=== PATIENT | male | born 1935 | race Caucasian/White ===

== ENCOUNTER 2017-09-24 21:50 | Inpatient (IN) | payer MEDICARE, OTHER, SELFPAY ==
[2017-09-24 21:50] VITALS: BP 138/64; PULSE 88; RESP 16; TEMP 36.6; O2SAT 93; BMI 26.6
--- NOTE | 2017-09-24 22:10 | EKG12_ITS ---
Test Reason : Blood Pressure : / mmHG Vent. Rate : 097 BPM Atrial Rate : 097 BPM P-R Int : 176 ms QRS Dur : 090 ms QT Int : 350 ms P-R-T Axes : 065 -07 047 degrees QTc Int : 444 ms Sinus rhythm with occasional Premature ventricular complexes and Premature atrial complexes Otherwise normal ECG Confirmed by DANK NARAYANAN, BERNADETTE ([id number]), production editor DIAZ AVENDAÑO ([id number]) on 09/26/2017 2:31:10 PM Referred By: JAKE Confirmed By:BERNADETTE WEEMS MD
--- NOTE | 2017-09-24 22:11 | RAD_ITS ---
STUDY: X-RAY CHEST REASON FOR EXAM: Male, 81 years old. Shortness of breath TECHNIQUE: Frontal and lateral views of the chest COMPARISON: None. FINDINGS: The lungs are clear. There are no pleural effusions. There is no pneumothorax. The heart is normal in size. The visualized osseous structures are within normal limits. RAD/Chest PA and Lateral IMPRESSION: No acute thoracic pathology. Electronically Signed: Young Waldron, at 23:06 EDT Tel , Service support ,
--- NOTE | 2017-09-24 22:18 | ED.DCSUM_ITS ---
- ER Visit Summary Date of Service: 09/24/17 Chief Complaint: Cough and shortness of breath History of Present Illness: The patient is a 81 M who was seen by his PCP on September 09 for cough and congestion along with shortness of breath. He was treated with a course of Levaquin. Patient was seen by his PCP again yesterday and was told his x-ray showed a spot of pneumonia. He was given Ceftin, Zithromax, albuterol, and prednisone. Patient presents today with no improvement in his symptoms. Patient is a past smoker. He denies any significant past medical history. Physical Examination: Vital signs are grossly unremarkable. Respiratory rate is 16 and pulse ox is 93% on room air. He is afebrile. Patient sitting upright in bed no acute distress. Head neck examination is unremarkable. Heart is regular rate and rhythm. Lung sounds are diminished at the bases bilaterally. Abdomen is soft nontender. Lower extremity examination reveals no calf tenderness or edema. Test Results: CBC was a white count of 18.9. Chemistry studies are unremarkable. EKG is sinus at 97 with single PVC. No acute ST change. Chest x -ray shows left basilar infiltrate per my read. Of note, the radiologist reading reveals no acute pathology. I disagree with this reading. Blood cultures were obtained. Emergency Department Course and Treatment: Patient was given a DuoNeb treatment. On repeat evaluation he has scant expiratory wheeze at this time. He still has moist sounding cough. He will be given Rocephin and Zithromax. He will be given 2 additional albuterol treatments and given a dose of Mucinex. Because the patient has failed outpatient therapy he will be admitted for further treatment. Treatment Plan: [] Disposition: Admit Impression: Community acquired pneumonia with failed outpatient management Addendum: When the patient was restarted albuterol treatments his heart rate noted to go up to 140 and irregular. Repeat EKG at this time reveals atrial fibrillation with a rate of 102. There is no ST change. Patient has no chest pain. Hospitalist has been updated and patient be given a dose of Lovenox here. Impression: 1. Community acquired pneumonia with failed outpatient management 2. Paroxysmal atrial fibrillation This note was generated with TestQuestation software. It may contain incorrect words, spelling, and punctuation that were not noted in review of the chart prior to signing ED Disposition - Plan for ED Patient: Chief Complaint: Shortness of Breath Referrals: Zeke Espinosa MD [Primary Care Provider] -
--- NOTE | 2017-09-24 22:18 | ED.RN ---
NO OLD EKG'S IN MUSE
[2017-09-24] MEDS: Ipratropium/Albuterol Sulfate 3 ML AMPUL.NEB INHALATION (22:22)
[2017-09-24 22:40] VITALS: BP 139/72; PULSE 87; RESP 22; O2SAT 93
[2017-09-24 22:48] LABS: Absolute Lymphocyte Count 7.38 X10^3/ul (0.83-4.51); Absolute Neutrophil Count 10.5 X10^3/uL (2.0-7.7); Basophil# 0.01 X10^3/uL; Basophil% 0.1 % (0-1); Eosinophil# 0.04 X10^3/uL; Eosinophils% 0.2 % (0-5); Hemoglobin 14.8 g/dl (13.0-16.5); Lymphocyte # 7.38 X10^3/ul (4.0); Mean Corp Hgb Conc 32.9 g/gl (32-36); Mean Corpuscular Hgb 32.4 pg (27.0-32.0); Mean Corpuscular Volume 98.5 fL (80-94); Mean Platelet Vol. 9.3 fl (6.2-12.0); Monocyte% 4.8 % (0-10); Neutrophil # 10.53 X10^3/uL (2.7-7.7); Neutrophil % 55.5 % (47-70); Platelet Count 182 K/mm3 (150-450); RBC Distribution Width SD 46.9 fl (35.1-43.9); Red Blood Count 4.57 M/mm3 (4.6-6.2); White Blood Count 18.9 K/mm3 (4.4-11.0)
[2017-09-24 22:49] LABS: Differential Indicated SCAN CRITERIA MET; POSITIVE COUNT NO; POSITIVE DIFFERENTIAL YES; POSITIVE MORPHOLOGY NO
[2017-09-24 22:58] LABS: Anion Gap 7 (5-15); BUN 25 mg/dL (7-18); BUN/Creat Ratio 23.8 RATIO (10-20); Calcium,Total 9.8 mg/dL (8.5-10.1); Chloride 100 mmol/L (98-107); Creatinine, Serum 1.05 mg/dL (0.70-1.30); EST Glomerular Filtration Rate 72 mL/min (>60); Est Glom Filt Rate - Afr Amer 88 mL/min (>60); Glucose 103 mg/dL (74-106); Potassium 4.1 mmol/L (3.5-5.1); Sodium Level 138 mmol/L (136-145)
[2017-09-24 23:15] LABS: Differential Comment SCANNED
[2017-09-24 23:16] LABS: Platelet Estimate ADEQUATE (ADEQ)
[2017-09-24 23:27] VITALS: BP 130/74; PULSE 123; PULSE 89; RESP 18; RESP 20; O2SAT 93
[2017-09-24] MEDS: Albuterol 2.5 MG/3 ML VIAL.NEB. INHALATION ×2 (23:27)
[2017-09-24] MEDS: 0.9% Normal Saline 1,000 ML 15 ML IV (23:27)
--- NOTE | 2017-09-24 23:27 | HP.PCM_ITS ---
Problem List (1) New onset a-fib Status: Acute (2) Sepsis Status: Acute (3) CAP (community acquired pneumonia) Status: Acute History of Present Illness Date of Admission: 09/24/17 Chief Complaint: Sepsis secondary to CAP. The patient is a 81 year old male is admitted for sepsis secondary to CAP. He has been cough x 2 weeks. He was initially treated with his PCP with levaquin. However, the frequency and intensity of his productive cough have increased. Nothing appeared to make his coughing better or worse. His cough is associated with SOB. The coughing has been so severe that it interfered with his ADLs. His had a chest xray yesterday which disclosed pneumonia. He was treated with Ceftin , Zithromax, albuterol, and prednisone. He presented to the ED because of no improvement. No sick contact. No travel, Past Medical History Allergies Sulfa (Sulfonamide Antibiotics) Allergy (Verified 09/24/17 21:55) Unknown Home Medications: Ambulatory Orders Medication Instructions Recorded Albuterol Aerosols [Ventolin 2.5 mg INHALATION Q4HWA.RT 09/24/17 Aerosols] Albuterol Inhaler [Ventolin Hfa 1 - 2 puff INHALATION Q4H PRN PRN 09/24/17 (SP)] Azithromycin [Zithromax Z-Omari] 250 mg PO UD 09/24/17 Cefuroxime Axetil [Ceftin] 250 mg PO BID 09/24/17 Prednisone 20 mg PO DAILY 09/24/17 Surgical History: no surgical history Psychiatric History: No pertinent psych hx Lives: Spouse/ Significant Other Smoking Status: Former smoker Alcohol: None Drugs: None Review of Systems Constitutional: Denies: Chills, Fever, Weight Change HEENT: Denies: Head Aches, Sinus Congestion, Sinus Drainage Cardiovascular: Denies: Chest Pain, Palpitations Respiratory: Reports: Cough, Shortness of breath at rest, Sputum production, Wheezing Gastrointestinal: Denies: Abdominal Pain, Nausea, Vomiting Genitourinary: Denies: Dysuria Musculoskeletal: Denies: Joint Pain, Joint Tenderness Skin: Denies: Rash, Wounds Neurological: Denies: Numbness, Tingling, Focal weakness Psychiatric: Denies: Anxiety, Depression, Homicidal Ideations, Suicidal Ideations Hematologic/ Lymphatic: Denies: Easy Bruising, Easy Bleeding VTE Information - Inpt Only VTE Present on Admission: No VTE Mechan Device Prophylaxis: SCD's VTE Pharm Prophylaxis ordered?: Yes Patient Problems: Active and Suspected Problems New onset a-fib (Acute) Sepsis (Acute) CAP (community acquired pneumonia) (Acute) - Physical Exam General: Alert, Oriented x3, Cooperative HEENT: Atraumatic, PERRLA, EOMI, Normocephalic Neck: Supple, No JVD, Negative Carotid Bruits Lungs: Diminished, Rales, Tachypneic, Wheezes Cardiovascular: Regular rate, No murmurs Abdomen: Bowel Sounds Present, Soft, Non Tender Extremities: No edema, Capillary Refill Less than 3 Seconds Skin: No rashes, No breakdown Musculoskeletal: No Tenderness to Palpation of Joints or Extremities Neurological: Cranial nerves II-XII grossly intact Psych/Mental Status: Normal Affect, Appropriate Vital Signs Temp Pulse Resp BP Pulse Ox 97.9 F 87 22 H 139/72 H 93 09/24/17 21:50 09/24/17 22:40 09/24/17 22:40 09/24/17 22:40 09/24/17 22:40 Oxygen Delivery Method Room Air Weight: 537.961 kg Body Mass Index (BMI) 170.1 Laboratory Tests Past 24 Hrs 09/24/17 09/24/17 09/24/17 22:30 22:30 22:30 WBC 18.9 H RBC 4.57 L Hgb 14.8 Hct 45.0 MCV 98.5 H MCH 32.4 H MCHC 32.9 RDW 13.0 RDW Differential 46.9 H Plt Count 182 MPV 9.3 Immature Gran % (Auto) 0.400 Neut % (Auto) 55.5 Lymph % (Auto) 39.0 [place] % (Auto) 4.8 Eos % (Auto) 0.2 Baso % (Auto) 0.1 Absolute Neuts (auto) 10.5 H Absolute Lymphs (auto) 7.38 H Total Counted Not Reportable Differential Comment SCANNED Diff Path Review May foll Platelet Estimate ADEQUATE Sodium 138 Potassium 4.1 Chloride 100 Carbon Dioxide 31.0 Anion Gap 7 BUN 25 H Creatinine 1.05 Estim Creat Clear Calc 58.90 Est GFR (MDRD) Af Amer 88 Est GFR (MDRD) Non-Af 72 BUN/Creatinine Ratio 23.8 H Glucose 103 Calcium 9.8 B-Natriuretic Peptide 24.0 Assessment/Plan Active and Suspected Problems New onset a-fib (Acute) Sepsis (Acute) CAP (community acquired pneumonia) (Acute) 81 year old male is admitted for sepsis secondary to CAP. 1) Sepsis secondary to CAP: Failed outpt therapy. Will start ceftriaxone and azithromycin. Will consider widening coverage if no improvement. Cultures pending. Lactate 2. Will repeat level. Hydration but with caution given comorbidity. 2) Afib with RVR: Most likely secondary to sepsis. Will get serial trops. Anticoagulation with lovenox. ECHO in AM. Consulted cards. 3) CAP: Hydration. C/w ceftriaxone and azithromycin. Increase coverage if no improvement. 4) Prophylaxis: Lovenox.
[2017-09-24] MEDS: Azithromycin 250 MG Tablet 500 MG PO (23:28)
[2017-09-24] MEDS: guaiFENesin 1,200 MG Tablet 1200 MG PO (23:28)
[2017-09-24] MEDS: Ceftriaxone 1 GM/50 ML BAG IV (23:28)
--- NOTE | 2017-09-24 23:40 | ED.RN ---
2330: PT NOTED TO BE IN AFIB ON BEDSIDE MONITOR, RATE 120'S. MD LANGSTON NOTIFIED AND REPEAT ECG ORDERED. PT AND FAMILY DENY HX OF AFIB. PT DENIES NOTICING RACING/IRREG HR CURRENTLY OR IN PAST.
--- NOTE | 2017-09-24 23:48 | CPS ---
Tx stopped due to increase in heart rate. Patient went into A-FIB.
[2017-09-25] VITALS (22 sets, daily range): BP systolic 103–143; BP diastolic 51–76; PULSE 69–119; RESP 16–20; TEMP 36.3–37.1; O2SAT 92–94; BMI 26.9
[2017-09-25] MEDS: Enoxaparin 80 MG/0.8 ML Syringe SC ×2 (00:06→09:33)
[2017-09-25] MEDS: 0.9% Normal Saline 1,000 ML 75 ML IV ×2 (01:16→12:25)
[2017-09-25 02:08] LABS: Bacteria 0 SEEN /hpf (None Seen); Mucous, Urine 0 SEEN /hpf (<or=2+); Red Blood Cells-Urine 0 SEEN /hpf (0-5); White Blood Cells 0 SEEN /hpf (0-5)
[2017-09-25 02:10] LABS: Color, Urine Straw (Yellow); Glucose, Dipstick Normal (Normal); Ketone-Dipstick Negative (Negative); Leukocyte Esterase-Dipstick Negative /ul (Negative); Nitrite-Dipstick Negative (Negative); Occult Blood-Urine Negative /ul (Negative); Protein-Dipstick Negative (Negative); Urine Bilirubin Dipstick Negative (Negative); Urine Clarity Clear (Clear); Urine Urobilinogen Normal (Normal); Urine pH 6.5 (5.0 - 8.0)
[2017-09-25 02:20] LABS: Squamous Epithelial Cells - UA 0-5 SEEN /hpf (0-5)
--- NOTE | 2017-09-25 04:25 | RAD_ITS ---
STUDY: X-RAY CHEST REASON FOR EXAM: Male, 81 years old. Shortness of breath TECHNIQUE: PA and lateral views of the chest. COMPARISON: 09/24/2017 FINDINGS: Coarsened prominence of interstitial lung markings at bilateral lung bases, left greater than right, unchanged. No new confluent airspace opacity. No pleural effusion or pneumothorax. Normal size heart. Normal mediastinum and wally. Normal visualized pulmonary arteries. There is atherosclerotic calcification of the aortic arch . There are diffuse degenerative changes of the visualized thoracic spine. Normal visualized ribs, clavicles, and shoulders. There is no demonstrated abnormality of the visualized soft tissue structures of the upper abdomen. RAD/Chest PA and Lateral IMPRESSION: Chronic bibasilar interstitial change with no evidence of acute cardiopulmonary disease. Electronically Signed: Nilson Ellis MD at 4:49 EDT Tel , Service support ,
[2017-09-25 04:27] LABS: Hematocrit 42.9 % (40-54); Hemoglobin 14.5 g/dl (13.0-16.5); Mean Corp Hgb Conc 33.8 g/gl (32-36); Mean Corpuscular Hgb 33.3 pg (27.0-32.0); Mean Corpuscular Volume 98.4 fL (80-94); Mean Platelet Vol. 9.5 fl (6.2-12.0); Platelet Count 173 K/mm3 (150-450); RBC Distribution Width CV 12.7 % (11.6-14.6); RBC Distribution Width SD 45.1 fl (35.1-43.9); Red Blood Count 4.36 M/mm3 (4.6-6.2); Scan Indicated on CBC? Y/N NO; White Blood Count 17.4 K/mm3 (4.4-11.0)
[2017-09-25 05:08] LABS: AST(SGOT) 36 U/L (15-37); Alanine Aminotransfer ALT/SGPT 51 U/L (16-61); Albumin, Serum 2.8 g/dL (3.2-5.0); Alkaline Phosphatase 57 U/L (45-117); Anion Gap 9 (5-15); BUN 22 mg/dL (7-18); BUN/Creat Ratio 24.9 RATIO (10-20); Bilirubin, Direct 0.15 mg/dL (0.00-0.30); Calcium,Total 9.1 mg/dL (8.5-10.1); Chloride 106 mmol/L (98-107); Cholesterol 152 mg/dL (200); Creatinine, Serum 0.88 mg/dL (0.70-1.30); EST Glomerular Filtration Rate 88 mL/min (>60); Est Glom Filt Rate - Afr Amer 107 mL/min (>60); Estimated Creatinine Clearance 68.07 ml/min; Globulin 3.6 g/dL (2.2-4.2); Glucose 103 mg/dL (74-106); High Density Lipoprotein 41 mg/dL; Potassium 3.9 mmol/L (3.5-5.1); Protein, Total 6.4 g/dL (6.4-8.2); Sodium Level 142 mmol/L (136-145); Thyroid Stim Hormone (TSH) 0.24 uIU/mL (0.358-3.74); Triglycerides 90 mg/dL; Very Low Density Lipoprotein 18 mg/dL (5-40)
--- NOTE | 2017-09-25 05:55 | ECHOD_ITS ---
Reason For Study: AFIB-FLUTTER Procedure This was a 2D Doppler, Color Flow transthoracic echocardiogram. The study was technically difficult. Exam performed portable in patient room. Left Ventricle Normal LV size. Left ventricular systolic function is normal. The estimated ejection fraction is 65 %. Transmitral diastolic flow velocities suggest mild (stage 1) diastolic dysfunction (reversed pattern). No regional wall motion abnormalities noted. Right Ventricle Normal RV size. Normal systolic function. Atria Normal left atrium. Normal right atrium. Mitral Valve Normal mitral valve. Tricuspid Valve Normal tricuspid valve. Mild (1+) tricuspid valve insufficiency. Pulmonary artery systolic pressure is 42 mmHg. Aortic Valve Normal aortic valve. Pulmonic Valve Normal pulmonic valve. Great Vessels Normal aortic root. The pulmonary artery is normal size. Pericardium/Pleural No pericardial effusion. MMode/2D Measurements & Calculations LVIDd: 4.2 cm IVSd: 1.0 cm Ao root diam: 3.5 cm LVIDs: 2.4 cm LVPWd: 1.1 cm LA dimension: 3.7 cm RVDd: 3.7 cm FS: 43.3 % LAV(MOD-bp): 59.3 ml LA A4 area: 18.7 cm2 RA A4 area: 18.8 cm2 LAV(MOD-bp) Indexed: 29.4 ml/m2 LAV(MOD-sp2): 63.1 ml LAV(MOD-sp4): 49.7 ml Time Measurements MV dec time: 0.25 sec Doppler Measurements & Calculations MV E max efra: 68.7 cm/sec Lat Peak E' Efra: 10.2 cm/sec Med Peak E' Efra: 12.4 cm/sec MV A max efra: 108.7 cm/sec E/E' lat: 6.7 E/E' med: 5.6 MV E/A: 0.63 MV V2 max: 114.5 cm/sec MV P1/2t max efra: 105.9 cm/sec Ao V2 max: 174.4 cm/sec MV max P.2 mmHg MV P1/2t: 83.0 msec Ao max P.2 mmHg MV V2 mean: 72.2 cm/sec MV dec slope: 373.7 cm/sec2 Ao V2 mean: 95.0 cm/sec MV mean P.4 mmHg MVA(P1/2t): 2.6 cm2 Ao mean P.5 mmHg MV V2 VTI: 30.6 cm Ao V2 VTI: 27.1 cm LV V1 max: 136.0 cm/sec PA V2 max: 132.7 cm/sec TR max efra: 311.1 cm/sec LV V1 max P.4 mmHg TR max P.7 mmHg LV V1 mean P.7 mmHg LV V1 mean: 89.2 cm/sec LV V1 VTI: 26.0 cm Interpretation Summary Normal LV size. Left ventricular systolic function is normal. The estimated ejection fraction is 65 %. Transmitral diastolic flow velocities suggest mild (stage 1) diastolic dysfunction (reversed pattern). Mild (1+) tricuspid valve insufficiency. Pulmonary artery systolic pressure is 42 mmHg. Ordering Physician: Des Concepcion Referring Physician: EDMAR LAUREANO Performed By: Ricardo Alejandro RCS
[2017-09-25] MEDS: Albuterol 2.5 MG/3 ML VIAL.NEB. INHALATION ×4 (06:02→18:52)
[2017-09-25 06:40] LABS: Reflex Lactate? Y
--- NOTE | 2017-09-25 06:44 | PCM.PROGNOTE ---
Patient Problems: Active and Suspected Problems New onset a-fib (Acute) Sepsis (Acute) CAP (community acquired pneumonia) (Acute) Subjective: Mr. Garcia is a 81-year-old male with a past medical history of tobacco dependence in remission who presented to the ED at [facility] on 09/24/2017 complaining of cough and shortness of breath. He recently had been treated by his PCP with Levaquin and then Ceftin and Azithromycin with no improvement. He had also been taking Prednisone and Albuterol. Vital signs in the emergency department were temp 97.9, pulse rate 88, blood pressure 138/64, respiratory rate 16 - 23 and he was 93% saturated on room air. White blood cell count was elevated at 18.9 with 55% neutrophils and 39% lymphocytes. Hemoglobin and platelets were normal. Electrolytes were normal and the BUN was 25 with a creatinine of 1.05. CXR was read as no infiltrates per the radiologist however per my review I can not rule out a retrocardiac infiltrate. Legionella and streptococcal antigens in the urine were negative. Influenza swab was negative. A sputum sample was obtained and Gram stain and culture are pending. Respiratory panel was ordered. He was admitted to the hospital with a diagnosis of sepsis due to community-acquired pneumonia and started on Ceftriaxone and azithromycin. Following admission he went into atrial fibrillation with rapid ventricular response with heart rates up to 123 bpm. He was started on Lovenox and a TSH was ordered which was low at 0.24. T4 and T3 have been ordered. ECHO was also ordered. He tells me that he has been sick for 3 weeks. cough is productive of Green frazier sputum. Denies CP. Cough is worse when he is lying down. He also has rhinorrhea and post nasal drainage. Denies sneezing and itchy watery eyes. Tells me that his PCP diagnosed him with COPD in the past. He quit smoking about 25 years ago. On no oxygen ever at home. Had no inhalers or tx for COPD prior to recent acute illness. Denies fevers, chills, sweats or weight loss. No diarrhea, Nausea or vomiting. Objective: General: Alert, oriented ?3, no very forthcoming with hx, appropriate, seems annoyed that I am asking him questions Neck: Supple, trachea midline, no enlarged cervical nodes or submandibular glands, no enlarged supraclavicular nodes Lungs: Clear to auscultation, diminished, symmetric chest expansion, not tachypneic, no conversational dyspnea, no accessory muscle use, coughing with any attempt to take a deep breath Heart: Regular rate and rhythm, normal S1, normal S2, no murmur, no gallop, no rub........AF has converted to NSR.....denies any hx of CAD of AF...has never had a stress test. Abdomen: Soft, NT, ND, bowel sounds present Extremities: No clubbing, no peripheral edema, no cyanosis - Physical Exam Vital Signs Temp Pulse Resp BP Pulse Ox 97.8 F 95 18 112/76 92 09/25/17 05:11 09/25/17 06:03 09/25/17 06:03 09/25/17 05:11 09/25/17 05:11 Oxygen Delivery Method Room Air Weight: 182 lb 5.156 oz Body Mass Index (BMI) 26.9 Intake and Output for Last 24 Hours 09/23/17 09/24/17 09/25/17 23:59 23:59 23:59 Intake Total 983 / 983 Output Total 350 / 350 Balance 633 / 633 Microbiology Past 72 Hours 09/25/17 02:50 Influenza Types A,B Direct FA (ROMEO) - Final Mucosa - Nose 09/25/17 02:03 Streptococcus pneumoniae Antigen (M - Final Urine, Clean Catch 09/25/17 02:03 Legionella Antigen - Final Urine, Clean Catch Laboratory Tests Past 24 Hrs 09/25/17 09/25/17 09/25/17 01:35 02:03 02:36 WBC RBC Hgb Hct MCV MCH MCHC RDW RDW Differential Plt Count MPV Sodium Potassium Chloride Carbon Dioxide Anion Gap BUN Creatinine Estim Creat Clear Calc Est GFR (MDRD) Af Amer Est GFR (MDRD) Non-Af BUN/Creatinine Ratio Glucose Lactic Acid 2.0 Calcium Total Bilirubin Direct Bilirubin AST ALT Alkaline Phosphatase Troponin I < 0.015 Total Protein Albumin Globulin Triglycerides Cholesterol LDL Cholesterol VLDL Cholesterol HDL Cholesterol TSH Urine Color Straw Urine Clarity Clear Urine pH 6.5 Ur Specific [place] 1.010 Urine Protein Negative Urine Glucose (UA) Normal Urine Ketones Negative Urine Occult Blood Negative Urine Nitrite Negative Urine Bilirubin Negative Urine Urobilinogen Normal Ur Leukocyte Esterase Negative Urine RBC 0 SEEN Urine WBC 0 SEEN Ur Squamous Epith Cells 0-5 SEEN Urine Bacteria 0 SEEN Urine Mucus 0 SEEN 09/25/17 09/25/17 09/25/17 04:12 04:12 04:12 WBC 17.4 H RBC 4.36 L Hgb 14.5 Hct 42.9 MCV 98.4 H MCH 33.3 H MCHC 33.8 RDW 12.7 RDW Differential 45.1 H Plt Count 173 MPV 9.5 Sodium 142 Potassium 3.9 Chloride 106 Carbon Dioxide 27.0 Anion Gap 9 BUN 22 H Creatinine 0.88 Estim Creat Clear Calc 68.07 Est GFR (MDRD) Af Amer 107 Est GFR (MDRD) Non-Af 88 BUN/Creatinine Ratio 24.9 H Glucose 103 Lactic Acid Calcium 9.1 Total Bilirubin 0.60 Direct Bilirubin 0.15 AST 36 ALT 51 Alkaline Phosphatase 57 Troponin I < 0.015 Total Protein 6.4 Albumin 2.8 L Globulin 3.6 Triglycerides 90 Cholesterol 152 LDL Cholesterol 93 VLDL Cholesterol 18 HDL Cholesterol 41 TSH 0.24 L Urine Color Urine Clarity Urine pH Ur Specific [place] Urine Protein Urine Glucose (UA) Urine Ketones Urine Occult Blood Urine Nitrite Urine Bilirubin Urine Urobilinogen Ur Leukocyte Esterase Urine RBC Urine WBC Ur Squamous Epith Cells Urine Bacteria Urine Mucus Medical Necessity - Tobacco Use Smoking Status: Former smoker Tobacco Use: Non-smoker Assessment/Plan Active and Suspected Problems New onset a-fib (Acute) Sepsis (Acute) CAP (community acquired pneumonia) (Acute) Impressions 1. suspect a retrocardiac infiltrate....possibly viral - will get a CT of the chest. 2. Leukocytosis may be due to recent OP steroids 3. suspected COPD - has never seen a fender finisher 4. Hyperthyroidism 5. PAF - likely related to hyperthyroidism and also to getting a duoneb and 2 albuterol aerosols in the ED last night just prior to going into AF 6. former smoker - quit many years ago Start a low dose beta perry Check anti-thyroid antibodies Add budesonide to the aerosols BID IS and Acapella Try Atrovent nasal spray to dry up the nose and the post nasal drip CT scan of the chest Await the results of the respiratory panel Sputum with 3+ WBC's - culture pending
[2017-09-25 07:31] LABS: Lactic Acid 1.6 mmol/L (0.4-2.0)
[2017-09-25 08:09] LABS: Free T3 2.4 pg/mL (2.18-3.98)
--- NOTE | 2017-09-25 09:32 | EKG12_ITS ---
Test Reason : Blood Pressure : / mmHG Vent. Rate : 102 BPM Atrial Rate : 416 BPM P-R Int : 000 ms QRS Dur : 088 ms QT Int : 334 ms P-R-T Axes : 000 003 025 degrees QTc Int : 435 ms Atrial fibrillation Nonspecific ST abnormality Abnormal ECG Confirmed by BERNADETTE WEEMS MD ([id number]), newspaper or periodical editor DIAZ AVENDAÑO ([id number]) on 09/26/2017 2:31:26 PM Referred By: KIAN Confirmed By:BERNADETTE WEEMS MD
[2017-09-25] MEDS: Ceftriaxone 1 GM/50 ML BAG IV (09:33)
[2017-09-25] MEDS: Aspirin 81 MG TAB.CHEW PO (09:33)
[2017-09-25] MEDS: Magnesium Hydroxide 30 ML UDC PO (09:44)
--- NOTE | 2017-09-25 12:03 | CT_ITS ---
STUDY: CT CHEST WITHOUT CONTRAST REASON FOR EXAM: Male, 81 years old. Shortness of breath RADIATION DOSAGE (If Supplied By Facility): CTDIvol = ( 19.23 ) mGy, DLP = ( 696.75 ) mGycm TECHNIQUE: Transaxial imaging was performed without the administration of intravenous contrast material. Coronal and sagittal reformatted images were created. Individualized dose optimization techniques were used for this CT. COMPARISON: None FINDINGS: There is atelectasis of the right lung base. There is airspace opacity in the left lower lobe which is consistent with an infiltrate. The lungs are otherwise clear. There are no pleural effusions. There is no pneumothorax. The heart and pericardium are within normal limits. There is no thoracic lymphadenopathy. There is no evidence of thoracic aortic aneurysm. Images through the upper abdomen demonstrate no significant abnormality. There are no destructive osseous lesions. CT/Chest without Contrast IMPRESSION: Left lower lobe infiltrate. Electronically Signed: Young Waldron, at 14:10 EDT Tel , Service support ,
[2017-09-25] MEDS: Metoprolol Tartrate 25 MG Tablet 12.5 MG PO ×2 (13:12→22:04)
[2017-09-25] MEDS: Ipratropium Bromide 0.06% NASAL SPRAY 2 SPRAY NASAL ×2 (13:45→22:09)
[2017-09-25] MEDS: Budesonide Respules 0.5 MG/2 ML AMPUL.NEB. INHALATION (18:52)
[2017-09-26] VITALS (16 sets, daily range): BP systolic 91–129; BP diastolic 44–66; PULSE 62–85; RESP 16–28; TEMP 36.1–36.9; O2SAT 89–95
[2017-09-26] MEDS: 0.9% Normal Saline 1,000 ML 75 ML IV ×2 (02:28→15:52)
[2017-09-26] MEDS: Ipratropium Bromide 0.06% NASAL SPRAY 2 SPRAY NASAL ×2 (05:32→22:21)
[2017-09-26 06:14] LABS: Hematocrit 41.5 % (40-54); Hemoglobin 13.7 g/dl (13.0-16.5); Mean Corpuscular Hgb 32.9 pg (27.0-32.0); Mean Corpuscular Volume 99.5 fL (80-94); Mean Platelet Vol. 9.8 fl (6.2-12.0); Platelet Count 184 K/mm3 (150-450); RBC Distribution Width CV 12.7 % (11.6-14.6); RBC Distribution Width SD 46.1 fl (35.1-43.9); Red Blood Count 4.17 M/mm3 (4.6-6.2); White Blood Count 12.8 K/mm3 (4.4-11.0)
[2017-09-26 06:32] LABS: Anion Gap 8 (5-15); BUN 17 mg/dL (7-18); BUN/Creat Ratio 19.8 RATIO (10-20); Chloride 108 mmol/L (98-107); Creatinine, Serum 0.86 mg/dL (0.70-1.30); EST Glomerular Filtration Rate 91 mL/min (>60); Est Glom Filt Rate - Afr Amer 111 mL/min (>60); Estimated Creatinine Clearance 69.65 ml/min; Glucose 88 mg/dL (74-106); Potassium 4.2 mmol/L (3.5-5.1); Sodium Level 144 mmol/L (136-145)
[2017-09-26 06:56] LABS: Scan Indicated on CBC? Y/N NO
[2017-09-26] MEDS: Ceftriaxone 1 GM/50 ML BAG IV (09:13)
[2017-09-26] MEDS: Aspirin 81 MG TAB.CHEW PO (09:13)
[2017-09-26] MEDS: Metoprolol Tartrate 25 MG Tablet 12.5 MG PO ×2 (09:14→22:20)
[2017-09-26] MEDS: Enoxaparin 40 MG/0.4 ML Syringe SC (09:14)
--- NOTE | 2017-09-26 10:38 | CASEMGMT ---
Face to Face with patient for initial transition planning/care coordination assessment. RN JEN introduced self and role at [facility], pt/granddaughter voice understanding and consent to assessment at this time. Pt is confused at times and granddaughter answers most questions for pt at this time. Pt is sitting up on side of bed in no distress at this time. Care providers, pharmacy, and demographics verified. See attached link. Pt/granddaughter voice no further concerns/needs at this time. Advised pt/granddaughter to ask for CM if any further questions/concerns/needs arise, voice understanding. CM to follow for any further discharge planning/needs. PLAN: JEREMIE Montgomery RN, CM
[2017-09-26 11:32] LABS: Pathologist Review Reviewed
[2017-09-26] MEDS: Haloperidol Lactate 5 MG/ML Vial 2 MG IV (11:51)
--- NOTE | 2017-09-26 17:53 | PCM.PROGNOTE ---
Patient Problems: Active and Suspected Problems New onset a-fib (Acute) Sepsis (Acute) CAP (community acquired pneumonia) (Acute) Subjective: Day #3 antibiotics azithromycin and Rocephin All Events of the past 24 hours have been reviewed. Afebrile since admission. Vital signs stable. 92-95% saturation on room air. White blood cell count today is down to 12.8. Hemoglobin and platelets are within normal limits. Electrolytes are unremarkable. BUN is down to 17 and the creatinine is 0.86 now, down from 1.05 at admission. Respiratory panel is positive for rhinovirus and the Gram stain shows 3+ white blood cells with no epithelial cells. Preliminary on the sputum culture is alpha hemolytic strep. CT chest was consistent with left basilar pneumonia. Echocardiogram shows normal left ventricular function with a 65% ejection fraction. Transmitral diastolic flow velocities are suggestive of stage I diastolic dysfunction. There is +1 TR and the pulmonary artery systolic pressure is estimated at 42. He became confused and agitated today and aggressive with the staff. Has been refusing Aerosols. Family states the past few weeks he has been intermittently confused and also has been hallucinating. Prior to a few weeks ago he had no problems with cognition. - Physical Exam General: Lethargic HEENT: Atraumatic, PERRLA, EOMI, Normocephalic Oral: Moist Mucosa Neck: Supple, No Nuchal Rigidity Lungs: Clear to auscultation, - - Coughing but the cough is not effective. He is unable to understand how to use the IS. Cardiovascular: Regular rate, Regular Rhythm, Normal S1, Normal S2, No rub noted, No Gallop Abdomen: Bowel Sounds Present, Soft, Non Tender, Non-Distended Extremities: No edema Psych/Mental Status: Agitated Vital Signs Temp Pulse Resp BP Pulse Ox 97.0 F L 62 18 91/44 L 95 09/26/17 14:06 09/26/17 16:55 09/26/17 14:06 09/26/17 14:06 09/26/17 14:06 Oxygen Delivery Method Room Air Weight: 186 lb 1.122 oz Body Mass Index (BMI) 26.9 Intake and Output for Last 24 Hours 09/24/17 09/25/17 09/26/17 23:59 23:59 23:59 Intake Total 2855 / 2855 1523 / 1523 Output Total 1210 / 1210 650 / 650 Balance 1645 / 1645 873 / 873 Microbiology Past 72 Hours 09/25/17 04:40 Gram Stain - Final Sputum, Expectorated/Coughed Respiratory Culture - Preliminary Alpha Hemolytic Streptococcus 09/25/17 07:45 Respiratory Panel (PCR) - Final Mucosa - Nose Rhinovirus 09/25/17 02:50 Influenza Types A,B Direct FA (ROMEO) - Final Mucosa - Nose 09/25/17 02:03 Streptococcus pneumoniae Antigen (M - Final Urine, Clean Catch 09/25/17 02:03 Legionella Antigen - Final Urine, Clean Catch Laboratory Tests Past 24 Hrs 09/26/17 09/26/17 05:25 05:25 WBC 12.8 H RBC 4.17 L Hgb 13.7 Hct 41.5 MCV 99.5 H MCH 32.9 H MCHC 33.0 RDW 12.7 RDW Differential 46.1 H Plt Count 184 MPV 9.8 Sodium 144 Potassium 4.2 Chloride 108 H Carbon Dioxide 28.0 Anion Gap 8 BUN 17 Creatinine 0.86 Estim Creat Clear Calc 69.65 Est GFR (MDRD) Af Amer 111 Est GFR (MDRD) Non-Af 91 BUN/Creatinine Ratio 19.8 Glucose 88 Calcium 9.0 Medical Necessity - Tobacco Use Smoking Status: Former smoker Tobacco Use: Non-smoker Assessment/Plan Active and Suspected Problems New onset a-fib (Acute) Sepsis (Acute) CAP (community acquired pneumonia) (Acute) Impressions 1. L basilar Pneumonia 2. Acute delirium...possibly due to hyperthyroidism 3. suspected COPD - has never seen a diffusion furnace operator 4. Hyperthyroidism 5. PAF - likely related to hyperthyroidism and also to getting a duoneb and 2 albuterol aerosols in the ED last night just prior to going into AF 6. former smoker - quit many years ago no recurrent AF check a CTB now Antithyroid antibodies are pending Thyroid ultrasound ordered for the a.m. Seroquel 25 mg p.o. nightly and Haldol 1-2 mg IV every 4 hours as needed agitation Continue Rocephin and azithromycin-await final sputum culture continue to encourage him to Take deep breaths. He has been able to use the Acapella with some good results. discussed the diagnosis of hyperthyroidism with the family Will need to follow up with an yard manager after discharge Code Visit Inpatient E&M: 66830 Subs Hosp L3
--- NOTE | 2017-09-26 18:04 | PN_ITS ---
Patient Problems: Active and Suspected Problems New onset a-fib (Acute) Sepsis (Acute) CAP (community acquired pneumonia) (Acute) Subjective: Day #3 antibiotics azithromycin and Rocephin All Events of the past 24 hours have been reviewed. Afebrile since admission. Vital signs stable. 92-95% saturation on room air. White blood cell count today is down to 12.8. Hemoglobin and platelets are within normal limits. Electrolytes are unremarkable. BUN is down to 17 and the creatinine is 0.86 now, down from 1.05 at admission. Respiratory panel is positive for rhinovirus and the Gram stain shows 3+ white blood cells with no epithelial cells. Preliminary on the sputum culture is alpha hemolytic strep. CT chest was consistent with left basilar pneumonia. Echocardiogram shows normal left ventricular function with a 65% ejection fraction. Transmitral diastolic flow velocities are suggestive of stage I diastolic dysfunction. There is +1 TR and the pulmonary artery systolic pressure is estimated at 42. He became confused and agitated today and aggressive with the staff. Has been refusing Aerosols. Family states the past few weeks he has been intermittently confused and also has been hallucinating. Prior to a few weeks ago he had no problems with cognition. - Physical Exam General: Lethargic HEENT: Atraumatic, PERRLA, EOMI, Normocephalic Oral: Moist Mucosa Neck: Supple, No Nuchal Rigidity Lungs: Clear to auscultation, - - Coughing but the cough is not effective. He is unable to understand how to use the IS. Cardiovascular: Regular rate, Regular Rhythm, Normal S1, Normal S2, No rub noted , No Gallop Abdomen: Bowel Sounds Present, Soft, Non Tender, Non-Distended Extremities: No edema Psych/Mental Status: Agitated Vital Signs Temp Pulse Resp BP Pulse Ox 97.0 F L 62 18 91/44 L 95 09/26/17 14:06 09/26/17 16:55 09/26/17 14:06 09/26/17 14:06 09/26/17 14:06 Oxygen Delivery Method Room Air Weight: 186 lb 1.122 oz Body Mass Index (BMI) 26.9 Intake and Output for Last 24 Hours 09/24/17 09/25/17 09/26/17 23:59 23:59 23:59 Intake Total 2855 / 2855 1523 / 1523 Output Total 1210 / 1210 650 / 650 Balance 1645 / 1645 873 / 873 Microbiology Past 72 Hours 09/25/17 04:40 Gram Stain - Final Sputum, Expectorated/Coughed Respiratory Culture - Preliminary Alpha Hemolytic Streptococcus 09/25/17 07:45 Respiratory Panel (PCR) - Final Mucosa - Nose Rhinovirus 09/25/17 02:50 Influenza Types A,B Direct FA (ROMEO) - Final Mucosa - Nose 09/25/17 02:03 Streptococcus pneumoniae Antigen (M - Final Urine, Clean Catch 09/25/17 02:03 Legionella Antigen - Final Urine, Clean Catch Laboratory Tests Past 24 Hrs 09/26/17 09/26/17 05:25 05:25 WBC 12.8 H RBC 4.17 L Hgb 13.7 Hct 41.5 MCV 99.5 H MCH 32.9 H MCHC 33.0 RDW 12.7 RDW Differential 46.1 H Plt Count 184 MPV 9.8 Sodium 144 Potassium 4.2 Chloride 108 H Carbon Dioxide 28.0 Anion Gap 8 BUN 17 Creatinine 0.86 Estim Creat Clear Calc 69.65 Est GFR (MDRD) Af Amer 111 Est GFR (MDRD) Non-Af 91 BUN/Creatinine Ratio 19.8 Glucose 88 Calcium 9.0 Medical Necessity - Tobacco Use Smoking Status: Former smoker Tobacco Use: Non-smoker Assessment/Plan Active and Suspected Problems New onset a-fib (Acute) Sepsis (Acute) CAP (community acquired pneumonia) (Acute) Impressions 1. L basilar Pneumonia 2. Acute delirium...possibly due to hyperthyroidism 3. suspected COPD - has never seen a clutch mechanic 4. Hyperthyroidism 5. PAF - likely related to hyperthyroidism and also to getting a duoneb and 2 albuterol aerosols in the ED last night just prior to going into AF 6. former smoker - quit many years ago no recurrent AF check a CTB now Antithyroid antibodies are pending Thyroid ultrasound ordered for the a.m. Seroquel 25 mg p.o. nightly and Haldol 1-2 mg IV every 4 hours as needed agitation Continue Rocephin and azithromycin-await final sputum culture continue to encourage him to Take deep breaths. He has been able to use the Acapella with some good results. discussed the diagnosis of hyperthyroidism with the family Will need to follow up with an boom boss after discharge Code Visit Inpatient E&M: 58996 Subs Hosp L3
--- NOTE | 2017-09-26 18:07 | CT_ITS ---
STUDY: CT BRAIN WITHOUT CONTRAST REASON FOR EXAM: Male, 81 years old. Altered mental status. RADIATION DOSAGE (If Supplied By Facility): CTDIvol = ( 44.99 ) mGy, DLP = ( 796.11 ) mGycm TECHNIQUE: Transaxial CT imaging of the brain was performed without administration of intravenous contrast material. Individualized dose optimization techniques were used for this CT. COMPARISON: None. FINDINGS: Normal soft tissue structures. Normal calvarium. Normal size ventricles and extra-axial spaces for the patient's age. Normal white matter tracts of the cerebral hemispheres. Normal basal ganglia and thalami. Normal brainstem. Normal cerebellum. There is no intracranial hemorrhage. There are no findings of an acute ischemic infarction. Normal visualized paranasal sinuses. CT/Brain/Head without Contrast IMPRESSION: Normal unenhanced CT scan of the brain. Electronically Signed: Nilson Rice DO at 18:45 EDT Tel [phone], Service support ,
[2017-09-26] MEDS: Haloperidol Lactate 5 MG/ML Vial IV ×2 (18:17→22:20)
[2017-09-26] MEDS: QUEtiapine 25 MG Tablet PO (22:20)
[2017-09-26] MEDS: Ipratropium/Albuterol Sulfate 3 ML AMPUL.NEB INHALATION (23:50)
[2017-09-26] MEDS: Budesonide Respules 0.5 MG/2 ML AMPUL.NEB. INHALATION (23:52)
[2017-09-27] VITALS (18 sets, daily range): BP systolic 103–145; BP diastolic 52–78; PULSE 57–90; RESP 16–24; TEMP 36.5–36.9; O2SAT 91–96
[2017-09-27] MEDS: Ipratropium/Albuterol Sulfate 3 ML AMPUL.NEB INHALATION ×4 (03:53→19:24)
[2017-09-27] MEDS: Benzonatate 100 MG Capsule PO (04:46)
--- NOTE | 2017-09-27 05:55 | US_ITS ---
STUDY: THYROID ULTRASOUND REASON FOR EXAM: Male, 81 years old. Hyperthyroidism. TECHNIQUE: Ultrasound evaluation of the thyroid was performed with real-time and static erickson-scale imaging. COMPARISON: None. FINDINGS: RIGHT LOBE: The right lobe of the thyroid gland measures 5.4 x 2.0 x 1.9 cm. There is a homogeneous echotexture. There are at least 2 nodular densities. The largest is located in the mid thyroid and measures 1.2 x 1 x 1 cm in size and is complex in appearance. LEFT LOBE: The left lobe of the thyroid gland measures 4.5 x 2.1 x 2.4 cm. There is a homogeneous echotexture. There are multiple small nodular densities. The largest measures 1.4 x 1.5 x 1.2 cm and is hypoechoic. ISTHMUS: The isthmus measures 0.6 cm. The regional lymph nodes are normal. US/Thyroid IMPRESSION: Multinodular thyroid. Measurements were reserved for the largest nodules on each side due to the patient's inability to tolerate the exam. Electronically Signed: Nilson Rice DO at 12:36 EDT Tel [phone], Service support ,
[2017-09-27] MEDS: 0.9% Normal Saline 1,000 ML 75 ML IV ×2 (06:06→20:00)
--- NOTE | 2017-09-27 06:55 | PCM.PROGNOTE ---
Patient Problems: Active and Suspected Problems New onset a-fib (Acute) Sepsis (Acute) CAP (community acquired pneumonia) (Acute) Subjective: Day #4 antibiotics All events of the past 24 hours have been reviewed. He was agitated and confused last night despite Seroquel 25 mg. He also had Haldol X 1 dose. Afebrile since admission. Vital signs stable. 89-92% saturation on room air overnight. WheeZing per RT and RN. Received 1 dose of Solumedrol. On scheduled aerosols. Brain CT revealed no acute findings. Thyroid ultrasound ordered for today shows multinodular goiter. He has no complaints today. He is much more alert and he is making eye contact with me today. He is more conversant. He still confused but he is not agitated today. Objective: General: Alert, making better eye contact today, cooperative, able to follow commands, apparent distress Neck: Supple, trachea midline, no enlarged cervical nodes, no enlarged supraclavicular nodes Lungs: Persistent coarse crackles in the left base, symmetric chest expansion, not tachypneic, no conversational dyspnea, no accessory muscle use Heart: Regular rate and rhythm, normal S1, normal S2, no murmur, no gallop, no rub Abdomen: Soft, NT, ND, bowel sounds present Extremities: No clubbing, no peripheral edema, no cyanosis - Physical Exam Vital Signs Temp Pulse Resp BP Pulse Ox 98.4 F 82 24 H 118/68 92 09/27/17 02:10 09/27/17 03:54 09/27/17 03:54 09/27/17 02:10 09/27/17 02:10 Oxygen Delivery Method Room Air Weight: 186 lb 1.122 oz Body Mass Index (BMI) 26.9 Intake and Output for Last 24 Hours 09/25/17 09/26/17 09/27/17 23:59 23:59 23:59 Intake Total 2855 / 2855 2142 / 2142 570 / 570 Output Total 1210 / 1210 650 / 650 500 / 500 Balance 1645 / 1645 1492 / 1492 70 / 70 Microbiology Past 72 Hours 09/25/17 04:40 Gram Stain - Final Sputum, Expectorated/Coughed Respiratory Culture - Preliminary Alpha Hemolytic Streptococcus 09/25/17 07:45 Respiratory Panel (PCR) - Final Mucosa - Nose Rhinovirus 09/25/17 02:50 Influenza Types A,B Direct FA (ROMEO) - Final Mucosa - Nose 09/25/17 02:03 Streptococcus pneumoniae Antigen (M - Final Urine, Clean Catch 09/25/17 02:03 Legionella Antigen - Final Urine, Clean Catch Laboratory Tests Past 24 Hrs 09/26/17 05:25 WBC 12.8 H RBC 4.17 L Hgb 13.7 Hct 41.5 MCV 99.5 H MCH 32.9 H MCHC 33.0 RDW 12.7 RDW Differential 46.1 H Plt Count 184 MPV 9.8 Medical Necessity - Tobacco Use Smoking Status: Former smoker Tobacco Use: Non-smoker Assessment/Plan Active and Suspected Problems New onset a-fib (Acute) Sepsis (Acute) CAP (community acquired pneumonia) (Acute) Impressions 1. L basilar Pneumonia 2. Acute delirium...possibly due to hyperthyroidism 3. suspected COPD - has never seen a school attendance secretary 4. Hyperthyroidism 5. PAF - likely related to hyperthyroidism and also to getting a duoneb and 2 albuterol aerosols in the ED last night just prior to going into AF 6. former smoker - quit many years ago 7. Multinodular thyroid Continue antibiotics.... Sputum culture has normal respiratory abe Continue steroids and [id number] aerosol treatments. Continue PTU at the present dose Increase Seroquel to 50 mg p.o. nightly Continue Lovenox for DVT prophylaxis Code Visit Inpatient E&M: [id number] Subs Hosp L2
--- NOTE | 2017-09-27 07:00 | PN_ITS ---
Patient Problems: Active and Suspected Problems New onset a-fib (Acute) Sepsis (Acute) CAP (community acquired pneumonia) (Acute) Subjective: Day #4 antibiotics All events of the past 24 hours have been reviewed. He was agitated and confused last night despite Seroquel 25 mg. He also had Haldol X 1 dose. Afebrile since admission. Vital signs stable. 89-92% saturation on room air overnight. WheeZing per RT and RN. Received 1 dose of Solumedrol. On scheduled aerosols. Brain CT revealed no acute findings. Thyroid ultrasound ordered for today shows multinodular goiter. He has no complaints today. He is much more alert and he is making eye contact with me today. He is more conversant. He still confused but he is not agitated today. Objective: General: Alert, making better eye contact today, cooperative, able to follow commands, apparent distress Neck: Supple, trachea midline, no enlarged cervical nodes, no enlarged supraclavicular nodes Lungs: Persistent coarse crackles in the left base, symmetric chest expansion, not tachypneic, no conversational dyspnea, no accessory muscle use Heart: Regular rate and rhythm, normal S1, normal S2, no murmur, no gallop, no rub Abdomen: Soft, NT, ND, bowel sounds present Extremities: No clubbing, no peripheral edema, no cyanosis - Physical Exam Vital Signs Temp Pulse Resp BP Pulse Ox 98.4 F 82 24 H 118/68 92 09/27/17 02:10 09/27/17 03:54 09/27/17 03:54 09/27/17 02:10 09/27/17 02:10 Oxygen Delivery Method Room Air Weight: 186 lb 1.122 oz Body Mass Index (BMI) 26.9 Intake and Output for Last 24 Hours 09/25/17 09/26/17 09/27/17 23:59 23:59 23:59 Intake Total 2855 / 2855 2142 / 2142 570 / 570 Output Total 1210 / 1210 650 / 650 500 / 500 Balance 1645 / 1645 1492 / 1492 70 / 70 Microbiology Past 72 Hours 09/25/17 04:40 Gram Stain - Final Sputum, Expectorated/Coughed Respiratory Culture - Preliminary Alpha Hemolytic Streptococcus 09/25/17 07:45 Respiratory Panel (PCR) - Final Mucosa - Nose Rhinovirus 09/25/17 02:50 Influenza Types A,B Direct FA (ROMEO) - Final Mucosa - Nose 09/25/17 02:03 Streptococcus pneumoniae Antigen (M - Final Urine, Clean Catch 09/25/17 02:03 Legionella Antigen - Final Urine, Clean Catch Laboratory Tests Past 24 Hrs 09/26/17 05:25 WBC 12.8 H RBC 4.17 L Hgb 13.7 Hct 41.5 MCV 99.5 H MCH 32.9 H MCHC 33.0 RDW 12.7 RDW Differential 46.1 H Plt Count 184 MPV 9.8 Medical Necessity - Tobacco Use Smoking Status: Former smoker Tobacco Use: Non-smoker Assessment/Plan Active and Suspected Problems New onset a-fib (Acute) Sepsis (Acute) CAP (community acquired pneumonia) (Acute) Impressions 1. L basilar Pneumonia 2. Acute delirium...possibly due to hyperthyroidism 3. suspected COPD - has never seen a zigzagger 4. Hyperthyroidism 5. PAF - likely related to hyperthyroidism and also to getting a duoneb and 2 albuterol aerosols in the ED last night just prior to going into AF 6. former smoker - quit many years ago 7. Multinodular thyroid Continue antibiotics.... Sputum culture has normal respiratory abe Continue steroids and yzjosv-kix-npyxm aerosol treatments. Continue PTU at the present dose Increase Seroquel to 50 mg p.o. nightly Continue Lovenox for DVT prophylaxis Code Visit Inpatient E&M: [id number] Subs Hosp L2
[2017-09-27] MEDS: Budesonide Respules 0.5 MG/2 ML AMPUL.NEB. INHALATION (07:15)
[2017-09-27] MEDS: Aspirin 81 MG TAB.CHEW PO (07:58)
[2017-09-27] MEDS: Ceftriaxone 1 GM/50 ML BAG IV (08:57)
[2017-09-27] MEDS: Enoxaparin 40 MG/0.4 ML Syringe SC (08:59)
[2017-09-27] MEDS: Metoprolol Tartrate 25 MG Tablet 12.5 MG PO ×2 (08:59→21:53)
[2017-09-27 14:08] LABS: Thyroid Peroxidase AB 8 IU/mL (0-34)
[2017-09-27] MEDS: predniSONE 20 MG Tablet 40 MG PO (19:58)
[2017-09-27] MEDS: QUEtiapine 25 MG Tablet 50 MG PO (21:56)
[2017-09-28] VITALS (16 sets, daily range): BP systolic 117–138; BP diastolic 57–73; PULSE 64–90; RESP 16–24; TEMP 36.3–36.9; O2SAT 95–96
[2017-09-28] MEDS: predniSONE 20 MG Tablet 40 MG PO (07:59)
[2017-09-28] MEDS: Aspirin 81 MG TAB.CHEW PO (08:00)
[2017-09-28] MEDS: 0.9% Normal Saline 1,000 ML 75 ML IV (09:37)
[2017-09-28] MEDS: Ceftriaxone 1 GM/50 ML BAG IV (09:38)
[2017-09-28] MEDS: Enoxaparin 40 MG/0.4 ML Syringe SC (09:41)
[2017-09-28] MEDS: Metoprolol Tartrate 25 MG Tablet 12.5 MG PO ×2 (09:42→21:21)
[2017-09-28] MEDS: Ipratropium/Albuterol Sulfate 3 ML AMPUL.NEB INHALATION ×2 (10:22→22:30)
--- NOTE | 2017-09-28 11:12 | RAD_ITS ---
STUDY: X-RAY CHEST REASON FOR EXAM: Male, 81 years old. Shortness of breath. Pneumonia at the left lung base. TECHNIQUE: PA and lateral views of the chest. COMPARISON: CT of the chest, September 25, 2017. FINDINGS: There are findings suggestive of COPD. There is a limited inspiratory effort on the current study. There is a density in the retrocardiac left lower lobe consistent with infiltrate. The lungs are otherwise clear. There is no demonstrated pleural abnormality. Normal size heart. Normal mediastinum and wally. Normal visualized pulmonary arteries. There is atherosclerotic calcification of the aortic arch with tortuosity. There are diffuse degenerative changes of the visualized thoracic spine. Normal visualized ribs, clavicles, and shoulders. There is no demonstrated abnormality of the visualized soft tissue structures of the upper abdomen. RAD/Chest PA and Lateral IMPRESSION: 1. Left lower lobe infiltrate. 2. Probable COPD. Electronically Signed: Nilson Rice DO at 12:51 EDT Tel [phone], Service support ,
[2017-09-28 11:13] LABS: Thyroglobulin Antibody < 1.0 IU/mL (0.0-0.9)
[2017-09-28] MEDS: Ipratropium Bromide 0.06% NASAL SPRAY 2 SPRAY NASAL ×2 (14:12→21:21)
--- NOTE | 2017-09-28 19:05 | PN_ITS ---
Patient Problems: Active and Suspected Problems New onset a-fib (Acute) Sepsis (Acute) CAP (community acquired pneumonia) (Acute) Subjective: Day #4 antibiotics Afebrile since admission. Vital signs are stable. Currently 95% on room air. Anti-thyroid antibodies are negative. Chest x-ray shows a persistent infiltrate in the retrocardiac area however it is decreasing in size. Today he is alert, oriented ?3, pleasant and appropriate. Denies diarrhea, mouth pain, painful swallowing, painful urination. Objective: General: Alert, oriented ?3, appropriate, pleasant and conversant and NAD, occasional cough Neck: Supple, trachea midline, no enlarged cervical nodes or submandibular glands, no enlarged supraclavicular nodes Lungs: Clear to auscultation, diminished, symmetric chest expansion, not tachypneic, no conversational dyspnea, no accessory muscle use, able to take a deep inspiration without coughing now Heart: Regular rate and rhythm, normal S1, normal S2, no murmur, no gallop, no rub........AF has converted to NSR.....denies any hx of CAD of AF...has never had a stress test. Telemetry: NSR with PVC's, no NSVT Abdomen: Soft, NT, ND, bowel sounds present Extremities: No clubbing, no peripheral edema, no cyanosis - Physical Exam Vital Signs Temp Pulse Resp BP Pulse Ox 97.9 F 89 16 117/57 L 95 09/28/17 15:35 09/28/17 15:35 09/28/17 15:35 09/28/17 15:35 09/28/17 15:35 Oxygen Flow Rate (L/min) 3.5 Oxygen Delivery Method Room Air Weight: 186 lb 1.122 oz Body Mass Index (BMI) 26.9 Intake and Output for Last 24 Hours 09/26/17 09/27/17 09/28/17 23:59 23:59 23:59 Intake Total 2142 / 2142 2186 / 2186 2075 / 2075 Output Total 650 / 650 500 / 500 700 / 700 Balance 1492 / 1492 1686 / 1686 1375 / 1375 Microbiology Past 72 Hours 09/25/17 04:40 Gram Stain - Final Sputum, Expectorated/Coughed Respiratory Culture - Final Medical Necessity - Tobacco Use Smoking Status: Former smoker Tobacco Use: Non-smoker Assessment/Plan Active and Suspected Problems New onset a-fib (Acute) Sepsis (Acute) CAP (community acquired pneumonia) (Acute) Impressions 1. L basilar Pneumonia - improving. No longer requiring Oxygen supplementation 2. Acute delirium...possibly due to hyperthyroidism, resolved 3. suspected COPD - has never seen a district court judge 4. Hyperthyroidism -multinodular thyroid with negative antithyroid antibodies 5. PAF - likely related to hyperthyroidism and also to aerosols 6. former smoker - quit many years ago 7. Multinodular thyroid Continue antibiotics.... Sputum culture has normal respiratory abe Continue prednisone and wean over the next 10 days. Continue PTU No recurrence of atrial fibrillation since being placed on metoprolol And PTU. Discontinue IV fluids Ambulatory pulse ox prior to discharge Continue cough suppressant except at at bedtime Probable discharge tomorrow. The patient and his family have been given contact numbers for to local endocrinologists. Code Visit Inpatient E&M: 72124 Subs Hosp L2
[2017-09-28] MEDS: QUEtiapine 25 MG Tablet PO (21:21)
[2017-09-29] VITALS (10 sets, daily range): BP systolic 101–129; BP diastolic 63–71; PULSE 62–78; RESP 16–20; TEMP 36.4–36.6; O2SAT 90–93
[2017-09-29] MEDS: Ipratropium Bromide 0.06% NASAL SPRAY 2 SPRAY NASAL ×2 (06:21→14:55)
[2017-09-29] MEDS: Ipratropium/Albuterol Sulfate 3 ML AMPUL.NEB INHALATION ×2 (07:11→10:46)
[2017-09-29] MEDS: Aspirin 81 MG TAB.CHEW PO (09:44)
[2017-09-29] MEDS: predniSONE 20 MG Tablet 40 MG PO (09:47)
[2017-09-29] MEDS: Metoprolol Tartrate 25 MG Tablet 12.5 MG PO (09:49)
[2017-09-29] MEDS: Enoxaparin 40 MG/0.4 ML Syringe SC (09:50)
[2017-09-29] MEDS: Ceftriaxone 1 GM/50 ML BAG IV (09:50)
[2017-09-29] MEDS: 0.9% NaCl Peripheral Flush Adult/Peds IV (09:51)
--- NOTE | 2017-09-29 14:20 | DCINST_ITS ---
- Discharge Diagnoses Current Active Problems: Current Active and Chronic Problems New onset a-fib (Acute) Sepsis (Acute) CAP (community acquired pneumonia) (Acute) You will use the following diet at home:: Cardiac Discharge Activity: Return to Normal Activity Call your doctor if you observe: Shortness of breath, Dizziness, Fainting spells , Chest pain, Increased palpitations (irregular heartbeat) Allergies/Adverse Reactions: Allergies Sulfa (Sulfonamide Antibiotics) Allergy (Verified 09/24/17 21:55) Unknown Medications to take at Discharge Albuterol Aerosols [Ventolin Aerosols] 2.5 mg INHALATION Q4HWA.RT 09/24/17 Albuterol Inhaler [Ventolin Hfa] 1 - 2 puff INHALATION Q4H PRN PRN 09/24/17 Metoprolol Tartrate [Lopressor (beta perry)] 12.5 mg PO BID #60 tab 09/29/17 Propylthiouracil 100 mg PO DAILY #60 tab 09/29/17 The following prescriptions were given: Propylthiouracil 100 mg PO DAILY #60 tab Metoprolol Tartrate [Lopressor (beta perry)] 12.5 mg PO BID #60 tab Primary Care Physician: Zeke Espinosa MD [Primary Care Provider] - Please follow up with your Primary Care Physician in: 1 Week Please Follow Up With: Endocrinology When: 1-2 Weeks Proposed Discharge Date: 09/29/17
--- NOTE | 2017-09-29 14:22 | DS.PCM_ITS ---
Addendum entered and electronically signed by NUBIA Vargas 09/29/17 14:56: Code Visit Additional diagnosis-suspected COPD exacerbation secondary to rhinovirus with associated hypoxia. Patient has never seen a tableau architect. Chest x-ray shows probable COPD. Patient has a former smoking history. Patient was treated with IV Solu-Medrol during admission and will be discharged on prednisone taper and albuterol aerosol. Patient was weaned off of oxygen and is stable on room air. Patient did not qualify for home oxygen. Original Note: Discharge Date and Diagnosis Date of Admission: 09/24/17 Date of Discharge: 09/29/17 - Primary Discharge Diagnosis Active and Suspected Problems 1. Community-acquired left basilar pneumonia 2. Acute metabolic encephalopathy secondary to hyperthyroidism/#1 3. New onset paroxysmal atrial fibrillation - Secondary Discharge Diagnosis Former tobacco use Suspected COPD Hospital Course and Treatment Imaging Results: Diagnostic Data Chest CT 09/25/17 12:03 IMPRESSION: Left lower lobe infiltrate. Electronically Signed: Young Waldron at 14:10 EDT Tel , Service support , Brain CT 09/26/17 18:07 IMPRESSION: Normal unenhanced CT scan of the brain. Electronically Signed: Nilson Rice DO at 18:45 EDT Tel [phone], Service support , Thyroid Ultrasound 09/27/17 05:55 IMPRESSION: Multinodular thyroid. Measurements were reserved for the largest nodules on each side due to the patient's inability to tolerate the exam. Electronically Signed: Nilson Rice DO at 12:36 EDT Tel [phone], Service support , Chest X-Ray 09/28/17 11:12 IMPRESSION: 1. Left lower lobe infiltrate. 2. Probable COPD. Electronically Signed: Nilson Rice DO at 12:51 EDT Tel [phone], Service support , Operations: None Procedures: 2-D Echocardiogram Summary of Care Provided: The patient is a 81 year old M admitted 09/24/2017 due to cough for 3 weeks. He failed outpatient antibiotic and steroid therapy. CT of chest showed left lower lobe infiltrate. Patient was treated with IV Rocephin and IV azithromycin. He will be discharged on prednisone taper. He was also noted to have rhinovirus. Blood culture showed no growth in 48 hours. Urine for strep and Legionella negative. Sputum culture shows normal respiratory abe. Oxygen stable on room air. Patient will continue home inhaler regimen. Patient found to have acute metabolic encephalopathy secondary to a combination of hyperthyroidism and pneumonia. Mental status at baseline at discharge. Patient was started on PTU 100 mg daily. Thyroid ultrasound showed multinodular thyroid. Patient will follow up with endocrinology as outpatient in 1-2 weeks. He was also found to have new onset paroxysmal atrial fibrillation which is suspected secondary to hyperthyroidism and aerosol treatments. He was started on low-dose metoprolol 12.5 mg twice daily. He has remained in sinus rhythm. Echocardiogram showed an ejection fraction of 65%, stage I diastolic dysfunction, pulmonary artery systolic pressure 42 mmHg. Patient seen and examined prior to discharge. Alert and oriented. Lungs diminished with mild expiratory wheezing. Heart rate regular in rate and rhythm. Abdomen soft, nontender. Neuro grossly intact. Vital signs stable. Patient stable for discharge home with further follow-up with primary care physician and endocrinology. This patient was seen by NUBIA Vargas under the supervision of Dr. Lopez. Discharge Diet: Low fat/ Low Cholesterol Discharge Activity: Return to Normal Activity Call your doctor if you observe: Shortness of breath, Dizziness, Fainting spells , Chest pain, Increased palpitations (irregular heartbeat) Home Medications: Medications to take at Discharge Albuterol Aerosols [Ventolin Aerosols] 2.5 mg INHALATION Q4HWA.RT 09/24/17 Albuterol Inhaler [Ventolin Hfa] 1 - 2 puff INHALATION Q4H PRN PRN 09/24/17 Metoprolol Tartrate [Lopressor (beta perry)] 12.5 mg PO BID #60 tab 09/29/17 Prednisone See Taper PO DAILY #30 tab 09/29/17 Propylthiouracil 100 mg PO DAILY #60 tab 09/29/17 Following Prescrptions Were Given to Patient: Prednisone See Taper PO DAILY #30 tab Propylthiouracil 100 mg PO DAILY #60 tab Metoprolol Tartrate [Lopressor (beta perry)] 12.5 mg PO BID #60 tab Primary Care Physician: Zeke Espinosa MD [Primary Care Provider] - Please follow up with your Primary Care Physician in: 1 Week Please Follow Up With: Endocrinology When: 1-2 Weeks Disposition: Home Minutes spent on discharge:: 35 Patient Condition:: Stable Medical Necessity - Tobacco Use Smoking Status: Former smoker Tobacco Use: Non-smoker Meaningful Use Info Meaningful Use Diagnoses (Choose all that apply): None applicable
== END 2017-09-29 15:45 | disposition home or self-care (01) | DRG 871 ==
LOC: ED 22:38 → PCU 09-25 00:43
PROVIDERS: Admitting Provider Internal Medicine; Emergency Provider Emergency Medicine; Family Provider Family Medicine; PCP Family Medicine; Visit Provider Internal Medicine
DX: A41.9 Sepsis, unspecified organism (principal); J12.89 Other viral pneumonia; G93.41 Metabolic encephalopathy; J44.0 Chronic obstructive pulmonary disease with (acute) lower respiratory infection; J44.1 Chronic obstructive pulmonary disease with (acute) exacerbation; F05 Delirium due to known physiological condition; R09.02 Hypoxemia; I48.0 Paroxysmal atrial fibrillation; E04.2 Nontoxic multinodular goiter; E05.90 Thyrotoxicosis, unspecified without thyrotoxic crisis or storm; Z87.891 Personal history of nicotine dependence; Z79.899 Other long term (current) drug therapy
CPT/HCPCS: 36415; 70450; 71046; 71250; 76536; 80048; 80061; 80076; 81001; 83605; 83880; 84439; 84443; 84481; 84484; 85025; 85027; 86376; 86800; 87040; 87070; 87205; 87449; 87633; 87804; 93005; 93306; 94640; 94667; 94668; 97110; 97116; 97162; 97165; 97530; 99285; J7030; J7040; A4216